=== PATIENT | female | born 1945 | race Caucasian/White ===

== ENCOUNTER 2022-10-06 13:23 | Outpatient (CLI) | payer MEDICARE, OTHER ==
[~2022-10-06] VITALS: Ht 157.5 cm; Wt 83.0 kg
[~2022-10-06 13:23] MED LIST: ALBU18HF2 INH; ASPI81TA52 PO; BACL20TA PO; BECL7.3A INH; CALC-1215 PO; FLUT16SP10 NS; GABA-532 PO; GLUC100017 PO; IBUP-1984 PO; LORA0.5T PO; MULT-1085 PO; OMEG1CAP2 PO; OMEP20CA4 PO; OXYB15TA19 PO
[2022-10-06 13:30] LABS: BASOPHILS % (AUTO) 0.6 % (0-1); EOSINOPHILS # (AUTO) 0.2 X10'3 (0-0.9); LYMPHOCYTES # (AUTO) 1.5 X10'3 (1.1-4.8); MEAN CORPUSCULAR HEMOGLOBIN 31.2 PG (27.0-31.0); MEAN CORPUSCULAR HGB CONC 32.8 g/dL (33.0-36.5); MEAN CORPUSCULAR VOLUME 95.1 FL (78-98); MEAN PLATELET VOLUME 7.3 FL (7.4-10.4); MONOCYTES # (AUTO) 0.7 X10'3 (0-0.9); MONOCYTES % (AUTO) 15.4 % (2-12); NEUTROPHILS # (AUTO) 2.2 X10'3 (1.8-7.7); PRE OP HEMATOCRIT 44.6 % (35.0-45.0); PRE OP HEMOGLOBIN 14.6 g/dL (12.0-16.0); PRE OP PLATELET COUNT 205 X10'3 (140-440); RED CELL DISTRIBUTION WIDTH 13.8 % (11.5-14.5)
[2022-10-06] MEDS ORDERED: OCCUVITE PO (13:46)
[2022-10-06] MEDS ORDERED: LEVOTHYROXINE PO (13:46)
[2022-10-06] MEDS ORDERED: TIZA-189 PO (13:46)
[2022-10-06] MEDS ORDERED: POTA99CA PO (13:46)
[2022-10-06] MEDS ORDERED: IPRA4AER IH (13:46)
[2022-10-06] MEDS ORDERED: MAGN250T29 PO (13:46)
[2022-10-06 13:52] LABS: ALBUMIN 3.7 G/DL (3.4-5.0); ALBUMIN/GLOBULIN RATIO 1.2 (1.1-1.5); ALKALINE PHOSPHATASE 115 IU/L (46-116); BLOOD UREA NITROGEN 12 MG/DL (7-18); BUN/CREATININE RATIO 15.8 (6.6-38.0); CALCIUM 9.2 MG/DL (8.5-10.1); CHLORIDE 108 MMOL/L (99-107); CREATININE 0.76 MG/DL (0.40-0.90); PRE OP ALT 16 U/L (30-65); PRE OP ANION GAP 9 (8-16); PRE OP AST 21 U/L (10-37); PRE OP BILIRUB, TOTAL 0.7 MG/DL (0.0-1.0); PRE OP GLUCOSE 91 MG/DL (70-104); PRE OP POTASSIUM 3.7 MMOL/L (3.4-5.1); PRE OP SODIUM 144 MMOL/L (135-145); TOTAL CARBON DIOXIDE 27.5 MMOL/L (24-32); TOTAL PROTEIN 6.9 G/DL (6.4-8.2); eGFR 74 ML/MIN
[2022-10-11] MEDS ORDERED: IBUP-1985 PO (11:39)
[2022-10-11] MEDS ORDERED: OMEP40CA21 PO (11:39)
[2022-10-11] MEDS ORDERED: OCUVITE PO (11:39)
[2022-10-11] MEDS ORDERED: CHOL100046 PO (11:39)
[2022-10-11] MEDS ORDERED: LEVO25TA7 PO (11:39)
[2022-10-12] MEDS ORDERED: ringers solution, lacted 1,000 ML IV SCH (05:00)
[2022-10-12] MEDS ORDERED: famotidine 20mg tablet PO ONE (05:30)
[2022-10-12] MEDS ORDERED: cefazolin 2gm/D5W 100mL 100 ML IV ONE (05:30)
[2022-10-12] MEDS ORDERED: albuterol 2.5 MG/3 ML nebule NEB PRN (05:30)
[2022-10-12] MEDS ORDERED: tranexamic acid 650mg tablet PO ONE (05:30)
[2022-10-12] MEDS ORDERED: vancomycin 1,500 MG in NS 300ml IV soln IV ONE (05:30)
== END 2022-10-06 23:59 | disposition home or self-care (01) ==
LOC: PRE-OP 13:23 → EDSTATUS 10-12 09:00
PROVIDERS: ATTEND Orthopaedic Surgery
DX: Z01.818 Encounter for other preprocedural examination (principal); M75.121 Complete rotator cuff tear or rupture of right shoulder, not specified as traumatic; M19.011 Primary osteoarthritis, right shoulder; J98.11 Atelectasis
CPT/HCPCS: 36415; 71046; 80053; 84443; 85025; 87081; J7120

== ENCOUNTER 2023-11-28 06:07 | Inpatient (IN) | payer MEDICARE, OTHER ==
[2023-11-16 16:18] LABS: ALBUMIN 3.6 G/DL (3.4-5.0); ALBUMIN/GLOBULIN RATIO 0.9 (1.1-1.5); ALKALINE PHOSPHATASE 116 IU/L (46-116); BLOOD UREA NITROGEN 19 MG/DL (7-18); BUN/CREATININE RATIO 18.4 (10.0-20.0); CALCIUM 9.2 MG/DL (8.5-10.1); CHLORIDE 106 MMOL/L (99-107); CREATININE 1.03 MG/DL (0.40-0.90); PRE OP ALT 18 U/L (30-65); PRE OP ANION GAP 10 (8-16); PRE OP AST 17 U/L (10-37); PRE OP BILIRUB, TOTAL 0.6 MG/DL (0.0-1.0); PRE OP GLUCOSE 86 MG/DL (70-104); PRE OP POTASSIUM 4.1 MMOL/L (3.4-5.1); PRE OP SODIUM 143 MMOL/L (135-145); TOTAL CARBON DIOXIDE 26.8 MMOL/L (24-32); TOTAL PROTEIN 7.4 G/DL (6.4-8.2); eGFR 52 ML/MIN
[2023-11-16 16:22] LABS: BASOPHILS % (AUTO) 0.5 % (0-1); EOSINOPHILS # (AUTO) 0.3 X10'3 (0-0.9); EOSINOPHILS % (AUTO) 3.9 % (0-6); LYMPHOCYTES # (AUTO) 2.6 X10'3 (1.1-4.8); LYMPHOCYTES % (AUTO) 38.2 % (21-51); MEAN CORPUSCULAR HEMOGLOBIN 30.5 PG (27.0-31.0); MEAN CORPUSCULAR HGB CONC 32.8 g/dL (33.0-36.5); MEAN CORPUSCULAR VOLUME 93.1 FL (78-98); MEAN PLATELET VOLUME 8.1 FL (7.4-10.4); MONOCYTES # (AUTO) 0.8 X10'3 (0-0.9); MONOCYTES % (AUTO) 11.2 % (2-12); NEUTROPHILS # (AUTO) 3.1 X10'3 (1.8-7.7); NEUTROPHILS % (AUTO) 46.2 % (42-75); PRE OP HEMATOCRIT 46.6 % (35.0-45.0); PRE OP HEMOGLOBIN 15.3 g/dL (12.0-16.0); PRE OP PLATELET COUNT 227 X10'3 (140-440); PRE OP WHITE BLOOD COUNT 6.7 10'3 (4.8-10.8); RED CELL DISTRIBUTION WIDTH 13.9 % (11.5-14.5)
[~2023-11-28] VITALS: Ht 157.5 cm; Wt 88.4 kg
[2023-11-28] VITALS (23 sets, daily range): BP systolic 95–132; BP diastolic 48–88; PULSE 59–79; RESP 13–18; TEMP 97–98.2; O2SAT 91–99
[2023-11-28] MEDS: cefazolin 2gm/D5W 100mL 100 ML IV ONE (05:30)
[~2023-11-28 06:07] MED LIST changes: +ACET-2119 PO; -BACL20TA PO; -BECL7.3A INH; -CALC-1215 PO; +CHOL100046 PO; -FLUT16SP10 NS; -IBUP-1984 PO; +IBUP-1985 PO; +IPRA4AER IH; +LEVO25TA7 PO; +MAGN250T29 PO; -MULT-1085 PO; +OCUVITE PO; -OMEG1CAP2 PO; -OMEP20CA4 PO; +OMEP40CA21 PO; -OXYB15TA19 PO; +POTA99CA PO; +TIZA-189 PO
[2023-11-28] MEDS: famotidine 20mg tablet PO ONE (07:08)
[2023-11-28] MEDS: tranexamic acid 650mg tablet PO ONE (07:08)
[2023-11-28] MEDS: ringers solution, lacted 1,000 ML IV SCH (07:09)
[2023-11-28] MEDS: vancomycin/NS 1 GM in NS 250 ML IV ONE (07:09)
[2023-11-28] MEDS ORDERED: ROPIVAcaine 0.5% (5mg/ml) 30ml vial ONE (08:45)
[2023-11-28] MEDS ORDERED: ketorolac trometh. 30mg/ml inj. ONE (08:45)
[2023-11-28] MEDS ORDERED: propofol inj 20 ML IV ONE (08:51)
[2023-11-28] MEDS ORDERED: LIDOcaine 2% (20mg/ml) 5ml vial ONE (08:51)
[2023-11-28] MEDS ORDERED: fentaNYL/PF 50MCG/1 ML 2ML syringe ONE (09:17)
[2023-11-28] MEDS ORDERED: midazolam 1 mg/ML 2ml injection ONE (09:17)
[2023-11-28] MEDS ORDERED: dexamethasone sod phosphate 4mg/ml inj. ONE (09:18)
[2023-11-28] MEDS ORDERED: ondansetron/PF 4mg/2ml inj ONE (09:18)
[2023-11-28] MEDS ORDERED: sevoflurane 250ml liquid IH ONE (09:20)
[2023-11-28] MEDS ORDERED: albuterol 2.5 MG/3 ML nebule NEB PRN (09:45)
[2023-11-28] MEDS ORDERED: ibuprofen 200mg tablet PO PRN (09:45)
[2023-11-28] MEDS ORDERED: LORazepam 0.5 MG tablet PO PRN (09:45)
[2023-11-28] MEDS ORDERED: tizanidine 4mg tablet PO PRN (09:45)
[2023-11-28] MEDS ORDERED: acetaminophen 325mg tablet PO PRN ×2 (09:45→11:15)
[2023-11-28] MEDS ORDERED: ePHEDrine 50MG/ML INJ. ONE (10:00)
[2023-11-28] MEDS ORDERED: acetaminophen 1,000mg/100ml IV 100 ML IV ONE (10:01)
[2023-11-28] MEDS: ROPIVAcaine 0.2%/PF PUMP/bolus 545 ML INTERSCALE SCH (10:35)
[2023-11-28] MEDS ORDERED: ROPIVAcaine 0.2% (10 MG/5 ML) BOLUS INJECTION INTERSCALE PRN (10:35)
[2023-11-28] MEDS ORDERED: ringers solution, lacted 1,000 ML IV SCH (10:35)
[2023-11-28] MEDS ORDERED: labetalol 20mg/4ml (5mg/ml) syringe IV PRN (10:35)
[2023-11-28] MEDS ORDERED: fentaNYL/PF 50MCG/1 ML 2ML syringe IV PRN ×2 (10:35)
[2023-11-28] MEDS ORDERED: morphine 2 MG/ML inj. syringe IV PRN (10:35)
[2023-11-28] MEDS ORDERED: proCHLORperazine 10 MG/2 ml inj IV PRN (10:35)
[2023-11-28] MEDS ORDERED: hydrALAZINE 20mg/ml inj. IV PRN (10:35)
[2023-11-28] MEDS ORDERED: morphine 4 MG/ML inj SYRINge IV PRN (10:35)
[2023-11-28] MEDS ORDERED: ondansetron/PF 4mg/2ml inj IV PRN ×2 (10:35→11:15)
[2023-11-28] MEDS: ROPIVAcaine 0.5% (5mg/ml) 30ml vial IJ ONE (11:00)
[2023-11-28] MEDS ORDERED: HYDROmorphone 1 mg/ml syringe IV PRN (11:15)
[2023-11-28] MEDS ORDERED: bisacodyl 10mg suppository rectal RC PRN (11:15)
[2023-11-28] MEDS ORDERED: magnesium hydroxide 30ml (MOM) UD suspension PO PRN (11:15)
[2023-11-28] MEDS ORDERED: HYDROmorphone inj. 0.5 MG/0.5 ML DISP.SYRIN IV PRN (11:15)
[2023-11-28] MEDS ORDERED: oxyCODONE IR 5mg (immed. release) tablet PO PRN ×2 (11:15)
[2023-11-28] MEDS ORDERED: diphenhydrAMINE 25mg capsule PO PRN ×2 (11:15)
[2023-11-28] MEDS: gabapentin 300mg capsule PO SCH (13:29)
[2023-11-28] MEDS: potassium cl 20mEq in 1/2 NS 1,000 ML IV SCH (13:30)
[2023-11-28] MEDS: acetaminophen 325mg tablet PO SCH (14:15)
[2023-11-28] MEDS: ceFAZolin/D5W- 1GM premix 50 ML IV SCH (16:20)
[2023-11-28] MEDS: sennosides 8.6mg tablet PO SCH (20:09)
[2023-11-28] MEDS: ipratropium/albuterol 3ml nebule NEB SCH (20:11)
[2023-11-28] MEDS: vancomycin/NS 1 GM ADD-VANTAGE 250 ML IV SCH (20:11)
[2023-11-29 02:00] VITALS: BP 98/52; PULSE 70; RESP 15; TEMP 98.1; O2SAT 94
[2023-11-29 06:26] VITALS: BP 94/38; PULSE 67; RESP 15; TEMP 97.9; O2SAT 93
[2023-11-29 06:48] VITALS: BP 89/39; PULSE 60; RESP 13; TEMP 97.3; O2SAT 94
[2023-11-29] MEDS ORDERED: non-formulary drug (Glucosamine Sulfate 2Kcl (Glucosamine) 1 TAB) PO SCH (08:00)
[2023-11-29] MEDS ORDERED: POTASSIUM CITRATE PO SCH (08:00)
[2023-11-29] MEDS: magnesium oxide 400mg tablet PO SCH (08:00)
[2023-11-29 08:55] LABS: BASOPHILS % (AUTO) 0.2 % (0-1); EOSINOPHILS % (AUTO) 0 % (0-6); HEMATOCRIT 39.2 % (35.0-45.0); HEMOGLOBIN 12.9 g/dl (12.0-16.0); LYMPHOCYTES # (AUTO) 1.5 X10'3 (1.1-4.8); LYMPHOCYTES % (AUTO) 16.7 % (21-51); MEAN CORPUSCULAR HEMOGLOBIN 30.9 PG (27.0-31.0); MEAN CORPUSCULAR HGB CONC 33.1 g/dL (33.0-36.5); MEAN CORPUSCULAR VOLUME 93.5 FL (78-98); MEAN PLATELET VOLUME 8.5 FL (7.4-10.4); MONOCYTES % (AUTO) 10.7 % (2-12); NEUTROPHILS # (AUTO) 6.6 X10'3 (1.8-7.7); NEUTROPHILS % (AUTO) 72.4 % (42-75); PLATELET COUNT 172 X10'3 (140-440); RED BLOOD COUNT 4.19 X10'6 (4.20-5.60); RED CELL DISTRIBUTION WIDTH 14.1 % (11.5-14.5); WHITE BLOOD COUNT 9.1 X10'3 (4.5-11.0)
[2023-11-29 09:13] VITALS: PULSE 65; RESP 16; O2SAT 96
[2023-11-29 09:18] LABS: ANION GAP 10 (8-16); CHLORIDE 108 MMOL/L (99-107); SODIUM 142 MMOL/L (135-145); TOTAL CARBON DIOXIDE 24.3 MMOL/L (24-32)
[2023-11-29 10:00] VITALS: BP 93/41; PULSE 65; RESP 16; TEMP 97.5; O2SAT 94
[2023-11-29] MEDS: levoTHYROXINE 25mcg tablet PO SCH (10:35)
[2023-11-29] MEDS: celeCOXIB 100mg capsule PO SCH (10:35)
[2023-11-29] MEDS: aspirin 325mg tablet PO SCH (10:35)
[2023-11-29] MEDS: pantoprazole 40mg Tablet.DR PO SCH (10:36)
[2023-11-29] MEDS ORDERED: celeCOXIB 100mg capsule PO SCH (20:00)
[2023-11-30] MEDS ORDERED: acetaminophen 325mg tablet PO PRN (13:15)
== END 2023-11-29 14:55 | disposition home or self-care (01) | DRG 483 ==
LOC: PAS IN 06:07 → ORTHO 4S 12:20
PROVIDERS: ADMIT Orthopaedic Surgery; ATTEND Orthopaedic Surgery
PROC: 0LS30ZZ Reposition Right Upper Arm Tendon, Open Approach (ICD-10-PCS; 2023-11-28)
PROC: 3E0T3BZ Introduction of Anesthetic Agent into Peripheral Nerves and Plexi, Percutaneous Approach (ICD-10-PCS; 2023-11-28)
PROC: 3E0T33Z Introduction of Anti-inflammatory into Peripheral Nerves and Plexi, Percutaneous Approach (ICD-10-PCS; 2023-11-28)
PROC: 0RRJ00Z Replacement of Right Shoulder Joint with Reverse Ball and Socket Synthetic Substitute, Open Approach (ICD-10-PCS; principal; 2023-11-28 09:20)
DX: M19.011 Primary osteoarthritis, right shoulder (principal); M75.121 Complete rotator cuff tear or rupture of right shoulder, not specified as traumatic; Z79.899 Other long term (current) drug therapy
CPT/HCPCS: 36415; 80051; 80053; 82948; 85025; 87081; 93005; 94640; 94760; 97110; 97161; 97530; A4565; A4615; A4618; A7000; C1776; G0378; J0131; J0690; J1100; J1885; J2250; J2405; J2704; J2795; J3010; J3370; J3480; J3490; J7120